=== PATIENT | male | born 1945 | race Caucasian/White ===

== ENCOUNTER 2019-06-27 11:21 | Emergency (ER) | payer MEDICARE ==
--- NOTE | 2019-06-27 12:11 | UC ---
Lower Extremity/Ankle HPI - HPI Summary HPI Summary: 74-year-old male who lives at [facility] living. He states that he was walking 2 days ago and thinks that he rolled his right ankle. He complains of pain more in the right foot at the base of the great toe as compared to the ankle. - History of Current Complaint Stated Complaint: RIGHT ANKLE INJURY Time Seen by Provider: 06/27/19 12:01 Hx Obtained From: Patient Onset/Duration: Sudden Onset Severity Initially: Mild Severity Currently: Mild Aggravating Factor(s): Standing, Ambulation Alleviating Factor(s): Rest Able to Bear Weight: Yes - But with pain base of great toe - Allergies/Home Medications Allergies/Adverse Reactions: Allergies Allergy/AdvReac Type Severity Reaction Status Date / Time bandaids Allergy burning Uncoded 06/27/19 12:24 skin Home Medications: Home Medications Acetaminophen [Tylenol Arthritis] 1,300 mg PO Q6H PRN 06/27/19 [History Confirmed 06/27/19] Amoxicillin/Potassium Clav [Amox-Clav 250-125 mg Tablet] 1 each PO DAILY [History Confirmed 06/27/19] Aspirin 81 mg PO DAILY 06/27/19 [History Confirmed 06/27/19] Atorvastatin* [Lipitor*] 20 mg PO 1700 06/27/19 [History Confirmed 06/27/19] Calcitriol CAP* [Rocaltrol CAP*] 0.25 mcg PO DAILY 06/27/19 [History Confirmed 06/27/19] Cinacalcet HCl [Sensipar] 60 mg PO DAILY 06/27/19 [History Confirmed 06/27/19] Droxidopa [Northera] 200 mg PO BID 06/27/19 [History Confirmed 06/27/19] Fludrocortisone Acetate TAB* [Florinef TAB*] 0.1 mg PO BID 06/27/19 [History Confirmed 06/27/19] Folic Acid 1 mg PO DAILY 06/27/19 [History Confirmed 06/27/19] Gabapentin [Neurontin] 100 mg PO DAILY 06/27/19 [History Confirmed 06/27/19] Thiamine HCl [Vitamin B-1] 50 mg PO DAILY 06/27/19 [History Confirmed 06/27/19] Warfarin Sodium [Coumadin] 4 mg PO DAILY 06/27/19 [History Confirmed 06/27/19] allopurinoL [Allopurinol] 100 mg PO DAILY 06/27/19 [History Confirmed 06/27/19] sevelamer HCL [Sevelamer HCl] 1,600 mg PO TID 06/27/19 [History Confirmed ] PMH/Surg Hx/FS Hx/Imm Hx Previously Healthy: Yes Cancer History: Colorectal Cancer - Surgical History Surgical History: Yes Surgery Procedure, Year, and Place: R kidney. hemicholectomy - Family History Known Family History: Positive: Non-Contributory - Social History Occupation: Retired Lives: Assisted Living Alcohol Use: None Substance Use Type: None Smoking Status (MU): Heavy Every Day Tobacco Smoker Type: Cigarettes Amount Used/How Often: 1/2 pack daily Review of Systems All Other Systems Reviewed And Are Negative: Yes Skin: Positive: Bruising - Mild bruising at the base of the right great toe. Musculoskeletal: Positive: Edema - Patient normally has some mild ankle and foot edema. Is Patient Immunocompromised?: No Physical Exam Triage Information Reviewed: Yes Appearance: Well-Appearing, No Pain Distress, Well-Nourished Vital Signs Reviewed: Yes Musculoskeletal: Positive: Strength Intact, ROM Intact, Other: - Good peripheral pulses, neuro sensation and capillary refill. Ankle and foot has mild edema which is normal for this patient. Bruising and tenderness on palpation of the base of the right great toe. No deformity is noted. Achilles is intact. Ankle is minimally tender on palpation. Neurological Exam: Normal Psychological Exam: Normal Skin: Positive: Other - See above notes Lower Extremity Course/Dx - Course Course Of Treatment: Right ankle x-ray: Negative Right foot x-ray:FINDINGS: There is diffuse soft tissue swelling. The bones are osteopenic. There are slightly impacted transverse fractures of the distal metaphyses of the second and third metatarsals. There are also oblique nondisplaced fractures at the bases of the fourth and fifth proximal phalanges. The fracture at the base of the fifth proximal phalanx extends to the proximal articular margin. IMPRESSION: 1. SLIGHTLY IMPACTED FRACTURES OF THE DISTAL SECOND AND THIRD METATARSALS. 2. NONDISPLACED FRACTURE AT THE BASE OF THE FOURTH PROXIMAL PHALANX. 3. NONDISPLACED OBLIQUE INTRA-ARTICULAR FRACTURE AT THE BASE OF THE FIFTH PROXIMAL PHALANX. A postop shoe was applied. The patient is comfortable here. Instructions were written to [facility] the assisted living facility with the patient resides. - Differential Dx/Diagnosis Provider Diagnosis: Fracture, foot Discharge ED - Sign-Out/Discharge Documenting (check all that apply): Patient Departure All imaging exams completed and their final reports reviewed: Yes - Discharge Plan Condition: Fair Disposition: HOME Patient Education Materials: Foot Fracture in Adults (ED) Referrals: Ronda Diamond MD [Medical Doctor] - Robert Little DPM [Doctor of Podiatric Medicine] - Adiel Cage MD [Primary Care Provider] - Additional Instructions: Elevate as much as possible, avoid walking until you are seen by the workplace trainer and assessor or orthopedist. [facility] can call today and make an appointment for you preferably at the workplace trainer and assessor. Tylenol for pain. - Billing Disposition and Condition Condition: FAIR Disposition: Home
[2019-06-27 12:23] VITALS: BP 110/92
== END 2019-06-27 13:26 | disposition home or self-care (01) ==
LOC: UCCORT 11:21
DX: S92.321A Displaced fracture of second metatarsal bone, right foot, initial encounter for closed fracture (principal); S92.331A Displaced fracture of third metatarsal bone, right foot, initial encounter for closed fracture; S92.514A Nondisplaced fracture of proximal phalanx of right lesser toe(s), initial encounter for closed fracture; X50.9XXA Other and unspecified overexertion or strenuous movements or postures, initial encounter; F17.210 Nicotine dependence, cigarettes, uncomplicated; Y92.9 Unspecified place or not applicable; Z91.09 Other allergy status, other than to drugs and biological substances; Z79.82 Long term (current) use of aspirin; Z85.038 Personal history of other malignant neoplasm of large intestine; Z79.01 Long term (current) use of anticoagulants
CPT/HCPCS: 99213; G0463